=== PATIENT | male | born 1975 | race Caucasian/White ===

== ENCOUNTER 2019-12-20 13:33 | Outpatient (CLI) | payer OTHER, SELFPAY ==
--- NOTE | 2019-12-25 11:45 | SLEEP_ITS ---
Home Sleep Test DATE OF STUDY: 12/20/2019 REQUESTING PHYSICIAN: Rachana Gasca PA-C. REASON FOR THIS STUDY: Sleep apnea, unspecified. HISTORY: This patient is a 44-year-old male, who is 6 feet 2 inches tall, weighing 245 pounds. BMI is 31.5. His complaints include loud snoring with restless sleep, elevated blood pressure and his is concerned about his stopping breathing while sleeping. He rarely awakens from sleep short of breath or with heartburn or belching. He constantly snores and it is frequently loud enough that others complain about it. He does not have trouble sleeping with a cold and does not wake up gasping for breath at night. He frequently has breathing problems at night witnessed by others. He rarely sweats excessively at night. He occasionally notices his heart pounding or beating irregularly at night. He does not fall asleep during the day, does not fall asleep involuntarily or while driving. He does not fall asleep with physical effort and does not have loss of muscle tone with strong emotion. He does not have daytime difficulties due to excessive sleepiness. He does not feel paralyzed on waking or falling asleep and does not have vivid dreamlike scenes upon awakening or falling asleep. He is never afraid to go to sleep. He does not have nightmares or remembers dreams. He rarely feels sad or depressed. He does not have anxiety. He does not have muscular tension or notices parts of his body jerking. He does not kick at night. He does not have crawly achy feelings in his legs. He rarely has leg pain at night. He does not have morning jaw pain. He does not grind his teeth during sleep. He is not bothered by pain during the day or awaken with pain at night. He occasionally wakes up feeling stiff in the morning. He rarely wakes up with sore or achy muscles. He does not wake up with pain in the neck and spine. He has headaches. Normal bedtime is 10 p.m., falling asleep within 15 to 20 minutes, waking 1 or 2 times at night, will stay awake 5 minutes and go back to sleep. He wakes in the morning at 5 a.m. He has on average 5 to 6 hours of sleep at night. Weekends, he stays up to midnight and wakes at 8 a.m. He does not take naps. A short nap is not refreshing. He is drowsy in the morning for 1 hour or longer. He feels better in the afternoon than at other times a day. MEDICAL COMORBIDITIES: 1. Hypertension. 2. Hyperlipidemia. MEDICATIONS: 1. Atorvastatin 20 mg a day. 2. Amlodipine 5 mg a day. HABITS: Tobacco, quit 4 years ago. Caffeine, 4 cups of coffee and 30 ounces of tea a day. No alcohol. No recreational drugs. DESCRIPTION OF THE STUDY: On the Malcom Sleepiness Scale his score is 4. This was conducted as an unattended type 3 portable home sleep test using 4 channel monitoring including respiratory effort channel, snoring channel, oxygen saturation channel, and heart rate channel. This study was scored using [facility] guidelines. The duration of the study was 8 hours 28 minutes. The apnea-hypopnea index is 62, extremely elevated. The oxygen desaturation index is 55. Lowest desaturation is 95%. The average saturation is 91%, which is below normal. The patient had 422 apneas. 80% of the apneas, 336 apneas were obstructive, 16% of the apneas or 66 were central and 5% of the apneas or 20 were mixed. He had 100 hypopneas. The patient had 4555 snoring events and desaturated 462 times spending 110 minutes or 22% of the study below 88% saturation. Heart rate ranged from 44 to 88. IMPRESSION: 1. This home sleep test shows evidence of extremely severe obstructive sleep apnea syndrome G47.33 with an apnea-hypopnea index of 62, majority of apneas, 80% were obstructive with prolonged and deep desaturation to a minimum o
== END 2019-12-20 13:34 | disposition home or self-care (01) ==
LOC: ANHCSM 13:34
PROVIDERS: PCP Physician Assistant; Visit Provider Physician Assistant
DX: G47.33 Obstructive sleep apnea (adult) (pediatric) (principal); Z68.31 Body mass index [BMI] 31.0-31.9, adult; E78.5 Hyperlipidemia, unspecified; I10 Essential (primary) hypertension
CPT/HCPCS: 95806